=== PATIENT | female | born 1975 | race Caucasian/White ===

== ENCOUNTER 2016-11-06 13:36 | Emergency (ER) | payer OTHER ==
[2016-11-06 13:56] VITALS: BP 127/74; PULSE 84; RESP 16; TEMP 97.7; O2SAT 99
[2016-11-06 13:57] LABS: COLOR YELLOW; LEUKOCYTE ESTERASE,URINE NEGATIVE (NEGATIVE); NITRITE,URINE NEGATIVE (NEGATIVE); PH,URINE 5.5 (5.0-7.5)
[2016-11-06] MEDS ORDERED: NS 1,000 ML IV ONE (14:03)
--- NOTE | 2016-11-06 14:14 | UCPHY ---
H & P Patient Type: Established Chief Complaint Nursing Narrative: frequency/urgency with urination x 1 week. now with dizziness, diagnosed with bladder infection 1 month ago. Source: Patient Exam Limitations: No limitations - Personal History LMP (Females 10-55): 22-28 Days Ago Current Tetanus Diphtheria and Acellular Pertussis (TDAP): Yes - Medical/Surgical History Hx Asthma: Yes Hx Chronic Respiratory Disease: No Hx Diabetes: No Hx Cardiac Disease: No Hx Renal Disease: No Hx Cirrhosis: No Hx Alcoholism: No Hx HIV/AIDS: No Hx Splenectomy or Spleen Trauma: No Other PMH: bladder infection 1 month ago, UTI/kidney infection 5 years ago. - Family History Significant Family History: No pertinent family hx - Social History Smoking Status: Never smoked Time Seen by Provider: 11/06/16 13:44 HPI/ROS: CHIEF COMPLAINT: urinary frequency, right flank pain, dizziness HISTORY OF PRESENT ILLNESS: 41-year-old female presents to Urgent Care complaining of a one-week history of urinary frequency and urgency, no dysuria, no hematuria. Patient reports today she has felt dizzy with ambulation that was worse after eating lunch and has developed right sided low back pain that is worse with ambulating. Patient reports she went skiing this weekend, denies falls. Patient denies fevers, chills she reports intermittent nausea, no vomiting, no abdominal pain or diarrhea. Patient was treated for a urinary tract infection 1 month ago with Keflex, she reports she did not take her medications as prescribed and missed several doses of this. Patient denies vaginal discharge. She is sexually active, denies history STD. REVIEW OF SYSTEMS: A comprehensive 10 point review of systems is otherwise negative aside from elements mentioned in the history of present illness. (Amanda Serrano) - Physical Exam Exam: Physical Exam Gen: Alert and Oriented, NAD HEENT: PERRL, dry mucous membranes NECK: no meningismus CV: regular rate and regular rhythm PULM: CTAB, no wheezes ABDOMEN: soft, non tender to palpation, BS present BACK: No CVA tenderness NEURO: Neurologically grossly intact, normal cerebellar exam, normal gait EXTREMITIES: normal appearing SKIN: no rash or break in skin on exposed skin PSYCH: answers questions appropriately. (Amanda Serrano) Constitutional: Initial Vital Signs Temperature (C) 36.5 C 11/06/16 13:48 Heart Rate 84 11/06/16 13:48 Respiratory Rate 16 11/06/16 13:48 Blood Pressure 127/74 H 11/06/16 13:48 O2 Sat (%) 99 11/06/16 13:48 O2 Delivery Mode Room Air Allergies/Adverse Reactions: No Known Allergies Allergy (Unverified 11/06/16 13:47) Home Medications: Medication Instructions Recorded NK [No Known Home Meds] 11/06/16 Medical Decision Making ED Course/Re-evaluation: IV established, CBC, chemistry panel and urinalysis obtained, patient is given 1 L of normal saline, she has a normal physical exam aside mild right SI joint tenderness to palpation. She has a normal neurologic exam. Urinalysis shows no signs of infection, urine culture ordered due to recent UTI treatment. CBC is unremarkable, chemistry panel shows a glucose of 157. Due to the patient's urinary frequency, dizziness and elevated blood sugar a hemoglobin A1c was ordered. TSH normal. She has a family history of diabetes, no personal history of diabetes. She is feeling better after a L of normal saline. Patient has normal vital signs. She will be discharged home, she agrees to follow up with her primary care doctor in [place] this week. She will call for her hemoglobin A1c results in 24 hours. Patient is given return precautions for fevers, headaches, increased dizziness, other questions or concerns. (Amanda Serrano) Differential Diagnosis: The differential diagnosis for the patient's dizziness included but was not limited to peripheral and central causes of vertigo, orthostatic causes including dehydration, cardiogenic and neurogenic causes, hypoglycemia and blood loss. (Amanda Serrano) Other Provider: The patient was evaluated and managed by the nurse practitioner, Amanda Serrano. My co-signature indicates that I have reviewed this chart and I agree with the findings and plan of care as documented. I am the secondary supervising physician. (Tiffany Basurto) - Data Points Laboratory Results: Laboratory Results 11/06/16 14:20 11/06/16 14:20 Microbiology Results: MICROBIOLOGY 11/06/16 13:45 Urine,Clean Catch Urine Culture - Final Two [place] Types Medications Given: Discontinued Medications Sodium Chloride (Ns) 1,000 mls @ 0 mls/hr IV ONCE ONE PRN Reason: Wide Open Stop: 11/06/16 14:04 Last Admin: 11/06/16 14:28 Dose: 1,000 mls Departure - Departure Disposition: Home, Routine, Self-Care Clinical Impression: Urinary frequency, Dizziness Condition: Good Instructions: Dysuria (ED), Dizziness (ED) Additional Instructions: Follow up with your primary care doctor in the next 3-5 days. Call in 24 hours for your hemoglobin A1c results. Return to Urgent Care or the emergency department for any fevers, vomiting, worsening symptoms, any other questions or concerns. Referrals: Ruy Montero [Other] - As per Instructions - PQRS PQRS Measurement: margarito (Amanda Serrano
[2016-11-06 14:29] LABS: % IMMATURE GRANULYOCYTES 0.5 % (0.0-1.1); ABSOLUTE IMMATURE GRANULOCYTES 0.03 10^3/uL (0.00-0.10); ADD DIFF? NO; ADD MORPH? NO; ADD SCAN? NO; ATYPICAL LYMPHOCYTE FLAG 10 (0-99); FRAGMENT RBC FLAG 0 (0-99); HEMATOCRIT 36.6 % (38.0-47.0); HEMOGLOBIN 12.9 g/dL (12.6-16.3); LEFT SHIFT FLG 0 (0-99); LIPEMIA HEMOLYSIS FLAG 90 (0-99); MEAN CELL HEMOGLOBIN 31.9 pg (27.9-34.1); MEAN CELL HEMOGLOBIN CONCENTR. 35.2 g/dL (32.4-36.7); MEAN CELL VOLUME 90.4 fL (81.5-99.8); MEAN PLATELET VOLUME 10.2 fL (8.7-11.7); PLATELET CLUMPS FLAG 0 (0-99); PLATELET COUNT 263 10^3/uL (150-400); RED BLOOD CELL COUNT 4.05 10^6/uL (4.18-5.33); RED CELL DISTRIBUTION WIDTH 12.1 % (11.5-15.2)
[2016-11-06 14:51] LABS: ANION GAP 10 mEq/L (8-16); CARBON DIOXIDE 24 mEq/l (22-31); CHLORIDE 100 mEq/L (97-110); CREATININE 0.8 mg/dL (0.6-1.0); GLOMERULAR FILTRATION RATE > 60; GLUCOSE 157 mg/dL (70-100); POTASSIUM 3.4 mEq/L (3.5-5.2); SODIUM 134 mEq/L (134-144)
[2016-11-06 15:50] LABS: CHOLESTEROL/HDL RATIO 3.02 RATIO (1.00-4.44); LDL/HDL RATIO 1.69 RATIO (1.00-3.22)
== END 2016-11-06 15:30 | disposition home or self-care (01) ==
LOC: EDBD → CED 13:36
DX: R35.0 Frequency of micturition (principal); R42 Dizziness and giddiness; Z87.440 Personal history of urinary (tract) infections
CPT/HCPCS: 80048-PO; 80061-PO; 81003-PO; 81025-PO; 84443-PO; 85025-PO; 96360-PO; 99214-PO; G0463-PO